=== PATIENT | male | born 1980 | race African-American/Black ===

== ENCOUNTER 2017-08-23 17:53 | Inpatient (IN) | payer OTHER ==
[~2017-08-23] VITALS: Ht 182.9 cm; Wt 154.4 kg
[~2017-08-23 17:53] MED LIST: HYDROCHLOROTHIA25 MG PO; LISINOPRIL20 MG PO; PHENERGAN-CODE120 ML PO; PROAIR HFA8.5 GM IH; PROVENTIL HFA6.7 GM IH; ZITHROMAX Z-PA250 MG PO
[2017-08-23 18:15] LABS: APPEARANCE CLEAR ((CLEAR)); BILIRUBIN NEGATIVE; BLOOD NEGATIVE; COLOR COLORLESS ((YELLOW)); GLUCOSE (STRIP) >=500; KETONES NEGATIVE; LEUKOCYTES NEGATIVE; NITRITE NEGATIVE; PROTEIN (STRIP) NEGATIVE; SPECIFIC GRAVITY 1.028 (1.000-1.030); UCUL ADDED? NO; UROBILINOGEN 0.2 MG/DL (0.2-1.0)
[2017-08-23 19:15] LABS: HEMATOCRIT 40.3 % (38.0-50.0); HEMOGLOBIN 14.3 G/DL (12.5-16.6); MCH 31.1 PG (29.0-34.0); MCHC 35.5 G/DL (30.0-36.0); MCV 87.6 FL (86-99); PLATELET COUNT 218 K/uL (156-360); RBC DIS.WIDTH-CV 12.7 % (11.8-14.6); RBC DIS.WIDTH-SD 41.1 % (39-53); WHITE BLOOD COUNT 6.1 K/uL (4.1-10.2)
[2017-08-23 19:26] LABS: ALBUMIN 4.6 g/dL (3.2-4.8); CHLORIDE 96 mEq/L (99-109); POTASSIUM 4.4 mEq/L (3.7-5.4); SODIUM 132 mEq/L (136-147)
[2017-08-23 19:31] LABS: TOTAL BILIRUBIN 0.4 mg/dL (0.0-1.0)
[2017-08-23 19:32] LABS: ALKALINE PHOSPHATASE 105 IU/L (3-129); CREATININE 1.8 mg/dL (0.6-1.3); GFR ESTIMATE (CALCULATED) 55 mL/min/ (58.99-99999)
[2017-08-23 19:34] LABS: AST (GOT) 38 IU/L (2-34); UREA NITROGEN (BUN) 15 mg/dL (9-23)
[2017-08-23 19:35] LABS: ALT (GPT) 75 IU/L (3-49); GLUCOSE 765 mg/dL (70-99)
[2017-08-23] MEDS ORDERED: NORVASC10 MG PO (21:10)
[2017-08-23] MEDS ORDERED: ZESTORETIC 20-1 EAC1 PO (21:10)
[2017-08-23] MEDS ORDERED: TYLENOL EXTRA500 MG PO (21:10)
[2017-08-23 22:56] LABS: Estimated Average Glucose 255 mg/dL (70-123); HEMOGLOBIN A1c (GLYCOHEMOGLOB) 10.5 % HGB (Below 5.7)
[2017-08-23 23:29] VITALS: BP 154/87
[2017-08-24 04:00] VITALS: BP 159/79
[2017-08-24 06:38] LABS: ALBUMIN 3.9 G/DL (3.2-4.8); CHLORIDE 103 MEQ/L (99-109); PHOSPHORUS 3.8 mg/dL (2.5-4.9); POTASSIUM 3.8 MEQ/L (3.7-5.4); SODIUM 138 MEQ/L (136-147); UREA NITROGEN (BUN) 12 mg/dL (9-23)
[2017-08-24 06:40] LABS: CREATININE 0.9 MG/DL (0.6-1.3); GFR ESTIMATE (CALCULATED) > 59 mL/min/ (58.99-99999); GLUCOSE 367 mg/dL (70-99)
[2017-08-24 07:09] LABS: HEMATOCRIT 37.9 % (38.0-50.0); HEMOGLOBIN 13.2 G/DL (12.5-16.6); MCH 30.9 PG (29.0-34.0); MCHC 34.8 G/DL (30.0-36.0); MCV 88.8 FL (86-99); PLATELET COUNT 188 K/uL (156-360); RBC DIS.WIDTH-CV 12.8 % (11.8-14.6); RBC DIS.WIDTH-SD 41.5 % (39-53); RED BLOOD COUNT 4.27 M/uL (4.00-5.50)
[2017-08-24 09:01] VITALS: BP 157/92
[2017-08-24 10:55] VITALS: BP 138/83
[2017-08-24 17:18] VITALS: BP 141/95
[2017-08-24 20:25] VITALS: BP 144/92
[2017-08-24 23:50] VITALS: BP 169/74
[2017-08-25 07:28] VITALS: BP 130/73
[2017-08-25 10:11] VITALS: BP 123/84
[2017-08-25 16:40] VITALS: BP 134/79
[2017-08-25 23:14] VITALS: BP 140/73
[2017-08-26 08:29] VITALS: BP 139/85
[2017-08-26 15:56] VITALS: BP 132/80
[2017-08-26 23:22] VITALS: BP 139/73
[2017-08-27 08:16] VITALS: BP 115/64
[2017-08-27] MEDS ORDERED: NOVOLOG PE100 UNITS/ SC (13:27)
[2017-08-27] MEDS ORDERED: VALACYCLOVIR500 MG PO (13:27)
[2017-08-27] MEDS ORDERED: LEVEMIR100 UNIT/2 SC (13:27)
== END 2017-08-27 15:31 | disposition home or self-care (01) | DRG 682 ==
LOC: EME 17:53 → 5EAST 21:01 → EDOF 21:01 → ENRESERV 21:05 → 5EAST 22:56 → ENPENDDIS 08-27 → 5EAST 08-27 15:31
PROVIDERS: Hospitalist; Nurse Practitioner Family
DX: N17.9 Acute kidney failure, unspecified (principal); E11.10 Type 2 diabetes mellitus with ketoacidosis without coma; E86.0 Dehydration; B02.9 Zoster without complications; E66.01 Morbid (severe) obesity due to excess calories; Z68.42 Body mass index [BMI] 45.0-49.9, adult; I10 Essential (primary) hypertension; F17.210 Nicotine dependence, cigarettes, uncomplicated; F12.90 Cannabis use, unspecified, uncomplicated; Z83.3 Family history of diabetes mellitus
CPT/HCPCS: 70551; 80053; 80069; 81003; 82010; 82948; 83036; 83930; 83935; 84300; 85027; 94799; 99281; 99285; J1815; J7030

== ENCOUNTER 2018-01-04 16:39 | Emergency (ER) | payer OTHER ==
[~2018-01-04] VITALS: Ht 154.9 cm; Wt 153.0 kg
[~2018-01-04 16:39] MED LIST changes: +LEVEMIR100 UNIT/2 SC; +NORVASC10 MG PO; +NOVOLOG PE100 UNITS/ SC; +TYLENOL EXTRA500 MG PO; +VALACYCLOVIR500 MG PO; +ZESTORETIC 20-1 EAC1 PO
[2018-01-04 18:25] VITALS: BP 161/100
== END 2018-01-04 18:28 | disposition home or self-care (01) ==
LOC: EME 16:39
DX: S61.412A Laceration without foreign body of left hand, initial encounter (principal); E11.9 Type 2 diabetes mellitus without complications; X99.0XXA Assault by sharp glass, initial encounter; Y92.89 Other specified places as the place of occurrence of the external cause; Z23 Encounter for immunization; I10 Essential (primary) hypertension; Z88.1 Allergy status to other antibiotic agents
CPT/HCPCS: 73130; 99281; 99284

== ENCOUNTER 2018-01-15 11:40 | Emergency (ER) | payer OTHER ==
[~2018-01-15] VITALS: Ht 180.3 cm; Wt 155.1 kg
[2018-01-15 12:52] VITALS: BP 165/93
== END 2018-01-15 12:54 | disposition home or self-care (01) ==
LOC: EME 11:40
DX: S61.412D Laceration without foreign body of left hand, subsequent encounter (principal); W25.XXXD Contact with sharp glass, subsequent encounter; E11.9 Type 2 diabetes mellitus without complications; F17.200 Nicotine dependence, unspecified, uncomplicated; I10 Essential (primary) hypertension; Z88.1 Allergy status to other antibiotic agents
CPT/HCPCS: 99281; 99283